=== PATIENT | male | born 1940 | race Caucasian/White ===

== ENCOUNTER → 2018-11-08 | Day surgery (SDC) | payer MEDICARE, OTHER ==
--- NOTE | 2018-11-04 22:33 | Diagnostic Imaging Report ---
EXAMINATION: CHEST 2 VIEWS INDICATION: ^PER PROTOCOL ^[id number] ^1645 ^PRE ADMIT COMPARISON: 08/26/2015 FINDINGS: PA and lateral views TUBES and LINES: None. LUNGS: Lungs are well inflated. Mild central vascular congestion. Bibasilar subsegmental atelectasis. PLEURA: No pleural effusion or pneumothorax. HEART AND MEDIASTINUM: The cardiomediastinal silhouette is unremarkable. Median sternotomy wires and mediastinal surgical clips are again seen. BONES AND SOFT TISSUES: No acute osseous lesion. Mildly elevated right hemidiaphragm. UPPER ABDOMEN: No free air under the diaphragm. IMPRESSION: No acute thoracic abnormality. Mild central vascular congestion and minimal bibasilar subsegmental atelectasis. Signed by: Dr. Willis Shanks MD on 11/04/2018 10:30 PM
[~2018-11-08] MED LIST: ACETAMINOPHEN 1000 MG/100 ML 100 ML IV ONE; AMLODIPINE BESYL5 MG PO; ASPIR 8181 MG PO; ATORVASTATIN CA10 MG PO; AUGMENTIN 875-1 EACH PO; BUPIVACAINE 0.25% 30ML SDV INJ ONE; CEFAZOLIN SOD 1 GM/NS 50ML 100 ML IV ONE; DEXAMETHASONE SOD PHOS INJ 4 MG/ML VIAL ONE; FENTANYL CITRATE/PF 100MCG/2 ML INJ ONE; FLAGYL500 MG PO; FLECAINIDE ACE100 MG PO; GLYCOPYRROLATE INJ 1MG/ 5 ML SYR ONE; IBUPROFEN 800MG/ 250ML 250 ML IV ONE; LIDOCAINE HCL (LTA) 4 ML SOLN ONE; LIDOCAINE HCL 2% JELLY 5 ML TUBE ONE; LIDOCAINE HCL 2% LOCAL INJ 5 ML SDV VIAL INJ ONE; METOPROLOL TAR100 MG PO; METOPROLOL TART50 MG PO; MIDAZOLAM HCL 2 MG/2 ML VIAL ONE; NEOSTIGMINE 5 MG/5ML SYR ONE; ONDANSETRON HCL INJ 2MG/ML 2ML 2 MG/ML VIAL ONE; PRINIVIL20 MG PO; PROPOFOL IV EMULSION 10 MG/ML 20 ML VIAL ONE; ROCURONIUM BROMIDE 10 MG/ML 5ML VIAL ONE; SEVOFLURANE INHAL SOLN 250 ML PEN BTL ONE; TAMIFLU75 MG PO; ZOFRAN ODT4 MG PO
--- OUTSIDE RECORDS SUMMARY | 2018-11-08 09:39 | XMS REPORT ---
[facility] Address Unknown Phone Unavailable Care Team Providers Care Physical Scientist Name Role Phone Bree NARANJO Unavailable Unavailable Payers Payer Name Policy Type Policy Number Effective Date Expiration Date Problems This patient has no known problems. Allergies, Adverse Reactions, Alerts Allergy Name Allergy Type Status Severity Reaction(s) Onset Date Inactive Date Treating Clinician Comments Tetanus Vaccines and Toxoid DA Active [place] 2010-06-18 00:00:00 Medications This patient has no known medications. Results Test Description Test Time Test Comments Text Results Atomic Results Result Comments CHEST 2 VIEWS 2018-11-04 22:28:00 [place] [address] Patient Name: LACHO SAENZ JR MR #: [id number] : 1940 Age/Sex: 78/M Req #: [id number] Adm Physician: Ordered by: KENDALL NARANJO MD Report #: [id number] Location: OR Room/Bed: Procedure: [id number] DX/CHEST 2 VIEWS Exam Date: 11/04/18 Exam Time: 1645 REPORT STATUS: Signed EXAMINATION: CHEST 2 VIEWS INDICATION: PER PROTOCOL [id number] PRE ADMIT COMPARISON: 08/26/2015 FINDINGS: PA and lateral views TUBES and LINES: None. LUNGS: Lungs are well inflated. Mild central vascular congestion. Bibasilar subsegmental atelectasis. PLEURA: No pleural effusion or pneumothorax. HEART AND MEDIASTINUM: The cardiomediastinal silhouette is unremarkable. Median sternot ivan wires and mediastinal surgical clips are again seen. BONES AND SOFT TISSUES: No acute osseous lesion. Mildly elevated right hemidiaphragm. UPPER ABDOMEN: No free air under the diaphragm. IMPRESSION: No acute thoracic abnormality. Mild central vascular congestion and minimal bibasilar subsegmental atelectasis. Signed by: Dr. Willis Smith MD on 11/04/2018 10:30 PM Dictated By: WILLIS SMITH MD 29 Transcribed By: LUIS on 11/04/182229 COPY TO: KENDALL NARANJO MD - XR T-SPINE 3 VIEWS 2018-09-28 13:25:00 [place]: CT St: REG Name: LACHO SAENZ [facility] FS : 1940 Age/S: 78/M [address] #: [id number] Loc: [facility] [address] Phys: Narciso Heck MD [place], [place] [address] Acct: [id number] Dis Date: Status: REG CLI PHONE #: Exam Date: 09/28/2018 1220 FAX #: Reason: ACUTE RIGHT SIDED THORACIC BACK PAIN EXAMS: CPT CODE: [id number] XR T-SPINE 3 VIEWS 34482 TECHNIQUE: 4 views of the thoracic spine COMPARISON: None provided. FINDINGS: Bones: Endplate osteophyte formation at multiple levels. No focal bone lesion. Subtle age indeterminate compression fractures mid and lower thoracic vertebral bodies on the lateral view.. Alignment: No spondylolisthesis. Median sternotomy. Intervertebral discs: Disc height reduction at multiple levels with degenerative disc changes. Paravertebral soft tissues: No abnormalities. Other: None. IMPRESSION: Mild spondylosis multiple levels. Subtle age indeterminate compression fractures mid and lower thoracic vertebral bodies on the lateral view.. at 1325 Reported and signed by: Neeraj Mathur M.D. CC: Technologist: BREE SOTO(R)(CT) Trnwyrd Date/Time/By: 09/28/2018 (1235) : By: Misha Orig Print D/T: S: 09/28/2018 (2713) PAGE 1 Signed Report
--- OUTSIDE RECORDS SUMMARY | 2018-11-08 09:39 | XMS REPORT | Summary of Care ---
Author Author [facility] Organization [facility] Address Unknown Phone Unavailable Encounter RYAN Alvarez([place]) [id number] Date(s): 08/31/15 - 08/31/15 [facility] [address] [place] [address]- [facility] [phone] Discharge Disposition: Home Attending Physician: Amy Kang MD Referring Physician: Amy Kang MD Vital Signs Most recent to 1 oldest [Reference Range]: Height 175.26 cm (08/31/15 7:24 AM) Temperature Oral 96.8 DegF [96.4-99.1 DegF] (08/31/15 7:24 AM) Blood Pressure 108/69 mmHg [90-140/60-90 mmHg] (08/31/15 7:24 AM) Peripheral Pulse 75 bpm Rate [60-100 bpm] (08/31/15 7:24 AM) Weight 106.818 kg (08/31/15 7:24 AM) Body Mass Index 34.78 m2 (08/31/15 7:24 AM) Problem List Condition Effective Dates Status Health Status Informant Cholesterol(Confirme Active d)1 HBP - High blood Active pressure(Confirmed) 1Hig cholesterol Allergies, Adverse Reactions, Alerts Substance Reaction Severity Status NKDA Active Medications lisinopril PO, Daily, 0 Refill(s) Start Date: 08/31/15 Status: Ordered metroNIDAZOLE 500 mg oral tablet 500 mg=1 tab, PO, Q8H, 0 Refill(s) Start Date: 08/31/15 Status: Ordered tobramycin 0 Refill(s) Start Date: 08/31/15 Status: Ordered Results No data available for this section Immunizations No data available for this section Procedures Procedure Date Related Diagnosis Body Site Triple coronary bypass Social History Social History Type Response Alcohol Past, Previous treatment: None. Smoking Status Former smoker; Exposure to Tobacco Smoke None; Cigarette Smoking Last 365 Days No; Reg Smoking Cessation Counseling No Assessment and Plan No data available for this section
--- OUTSIDE RECORDS SUMMARY | 2018-11-08 09:39 | XMS REPORT | Summary of Care ---
Author Author [facility] Organization [facility] Address Unknown Phone Unavailable Encounter RYAN Alvarez([place]) [id number] Date(s): 03/23/15 - 03/23/15 [facility] [address] [place] [address] Discharge Disposition: Home Attending Physician: Amy Kang MD Referring Physician: Pao Rosa MD Vital Signs Most recent to 1 oldest [Reference Range]: Height 175.26 cm (03/23/15 9:26 AM) Blood Pressure 125/63 mmHg [90-140/60-90 mmHg] (03/23/15 9:26 AM) Peripheral Pulse 56 bpm Rate [60-100 bpm] *LOW* (03/23/15 9:26 AM) Weight 119.091 kg (03/23/15 9:26 AM) Body Mass Index 38.77 m2 (03/23/15 9:26 AM) Problem List Condition Effective Dates Status Health Status Informant Cholesterol(Confirme Active d)1 HBP - High blood Active pressure(Confirmed) 1Hig cholesterol Allergies, Adverse Reactions, Alerts No data available for this section Medications amLODIPine 10 mg oral tablet 10 mg=1 tab, PO, Daily, # 30 tab, 0 Refill(s) Start Date: 03/23/15 Status: Ordered Aspirin Low Dose 81 mg oral tablet =1 tab, PO, Daily, # 30 tab, 1 Refill(s) Start Date: 03/23/15 Status: Ordered atorvastatin 20 mg oral tablet 20 mg=1 tab, PO, Bedtime, # 30 tab, 0 Refill(s) Start Date: 03/23/15 Status: Ordered cyclobenzaprine 10 mg oral tablet 10 mg=1 tab, PO, Bedtime, # 30 day, 0 Refill(s) Start Date: 03/23/15 Stop Date: 04/22/15 Status: Ordered GoLYTELY oral powder for reconstitution See Instructions, Take as directed by physician., # 1 ea, 0 Refill(s) Start Date: 03/23/15 Status: Ordered metoprolol 100 mg oral tablet, extended release 100 mg=1 tab, PO, Daily, # 30 tab, 0 Refill(s) Start Date: 03/23/15 Status: Ordered predniSONE 10 mg oral tablet 10 mg=1 tab, PO, Daily, # 30 tab, 0 Refill(s) Start Date: 03/23/15 Stop Date: 04/22/15 Status: Ordered Results No data available for [...]
--- OUTSIDE RECORDS SUMMARY | 2018-11-08 09:39 | XMS REPORT | Summary of Care ---
Author Author [facility] Organization [facility] Address Unknown Phone Unavailable Encounter RYAN Alvarez([place]) [id number] Date(s): 09/07/15 - 09/07/15 [facility] [address] [place] [address]- [address] [phone] Discharge Disposition: Home Attending Physician: Sheldon Horn MD Referring Physician: Sheldon Horn MD Vital Signs Most recent to 1 oldest [Reference Range]: Height 177.8 cm (09/07/15 12:36 PM) Blood Pressure 118/79 mmHg [90-140/60-90 mmHg] (09/07/15 12:36 PM) Peripheral Pulse 74 bpm Rate [60-100 bpm] (09/07/15 12:36 PM) Weight 104.091 kg (09/07/15 12:36 PM) Body Mass Index 32.93 m2 (09/07/15 12:36 PM) Problem List Condition Effective Dates Status Health Status Informant Cholesterol(Confirme Active d)1 Clostridium Active difficile(Confirmed) HBP - High blood Active pressure(Confirmed) 1Hig cholesterol Allergies, Adverse Reactions, Alerts Substance Reaction Severity Status NKDA Active Medications No Known Medications Results No data available for this section Immunizations No data available for this section Procedures Procedure Date Related Diagnosis Body Site Colonoscopy Triple coronary bypass Social History Social History Type Response Alcohol Past, Previous treatment: None. Smoking Status Former smoker; Exposure to Tobacco Smoke None; Cigarette Smoking Last 365 Days No; Reg Smoking Cessation Counseling No Assessment and Plan No data available for this section
--- OUTSIDE RECORDS SUMMARY | 2018-11-08 09:39 | XMS REPORT | Continuity of Care Document ---
Author Author [facility] Interface Address Unknown Phone Unavailable Problems Problem Status Onset Date Classification Date Reported Comments Source ADD ON PER ABHINAV Active 09/07/2015 [facility] Discharge Diagnosis: Dehydration 09/06/2015 09/09/2015 [facility] Discharge Diagnosis: C. difficile colitis 09/06/2015 09/09/2015 [facility] RECURRENCE OF C DIFF Active 09/05/2015 [facility] F/U Active 08/27/2015 [facility] BDDC - ENCOUNTER FOR SCREENING FOR MALIG Active 03/23/2015 [facility] CT IDENTIFIED ISSUE WITH LOWER INSTESTIN Active 02/22/2015 [facility] Cholesterol<sup>1</sup> Active Problem 09/10/2015 Hig cholesterol [facility] HBP - High blood pressure Active Problem 09/10/2015 [facility] Final: Other and Unspecified Angina Pectoris 02/16/2015 OLIVE Gutierrez Final: Coronary Atherosclerosis of [place] Coronary Artery 02/16/2015 OLIVE Gutierrez Final: First Degree Atrioventricular Block 02/16/2015 OLIVE Gutierrez Final: Postsurgical Aortocoronary Bypass Status 02/16/2015 OLIVE Gutierrez Final: Percutaneous Transluminal Coronary Angioplasty, Postsurgical Status 02/16/2015 OLIVE Gutierrez Clostridium difficile Active Problem 09/10/2015 [facility] XRAY Active [facility] LUMBOSACRAL NEURITIS NOS Active [facility] MEDICAL SERVICES NOT AVAILABLE IN HOME Active [facility] Medications Medication Details Route Status Patient Instructions Ordering Provider Order Date Source vancomycin 125 mg oral capsule 125 mg=1 cap, PO, Q6H, X 10 day, # 40 cap, 0 Refill(s) No Longer Active 09/06/2015 [facility] Ondansetron 8 MG Disintegrating Tablet [Zofran] 8 mg=1 tab, PO, TID, PRN Nausea and Vomiting, Dissolve tab under tongue, # 15 tab, 0 Refill(s) No Longer Active 09/06/2015 [facility] Zofran 4 mg, Route: IVP, Drug form: INJ, ONCE, Dosing Weight 106.818, kg, Priority: STAT, Start date: 09/06/15 17:36:00 CDT, Stop date: 09/06/15 17:36:00 CDT Inactive 09/06/2015 [facility] Calcium Chloride 0.0014 MEQ/ML / Potassium Chloride 0.004 MEQ/ML / Sodium Chloride 0.103 MEQ/ML / Sodium Lactate 0.028 MEQ/ML Injectable Solution 1,000 mL, 1000 ml/hr, Infuse Over: 1 hr, Route: IV, 1,000, Drug form: INJ, ONCE, Priority: STAT, Dosing Weight 106.818 kg, Start date: 09/06/15 17:05:00 CDT, Duration: 1 doses or times, Stop date: 09/06/15 17:05:00 CDT Inactive 09/06/2015 [facility] Calcium Chloride 0.0014 MEQ/ML / Potassium Chloride 0.004 MEQ/ML / Sodium Chloride 0.103 MEQ/ML / Sodium Lactate 0.028 MEQ/ML Injectable Solution 1,000 mL, 1000 ml/hr, Infuse Over: 1 hr, Route: IV, 1,000, Drug form: INJ, ONCE, Priority: STAT, Dosing Weight 106.818 kg, Start date: 09/06/15 17:04:00 CDT, Duration: 1 doses or times, Stop date: 09/06/15 17:04:00 CDT Inactive 09/06/2015 [facility] Sodium Chloride 0.154 MEQ/ML Injectable Solution 1,000 mL, 1,000 ml/hr, Infuse Over: 1 Hour, Route: IV, ONCE, Priority: STAT, Dosing Weight 106.818 kg, Start date: 09/06/15 17:03:00 CDT, Duration: 1 doses or times, Stop date: 09/06/15 17:03:00 CDT Inactive 09/06/2015 [facility] Tobramycin 0 Refill(s) Active 08/31/2015 [facility] Metronidazole 500 MG Oral Tablet 500 mg=1 tab, PO, Q8H, 0 Refill(s) Active 08/31/2015 [facility] Lisinopril PO, Daily, 0 Refill(s) Active 08/31/2015 [facility] GoLYTELY oral powder for reconstitution See Instructions, Take as directed by physician., # 1 ea, 0 Refill(s) Active 03/23/2015 [facility] cyclobenzaprine 10 mg oral tablet 10 mg=1 tab, PO, Bedtime, # 30 day, 0 Refill(s) Active 03/23/2015 [facility] predniSONE 10 mg oral tablet 10 mg=1 tab, PO, Daily, # 30 tab, 0 Refill(s) Active 03/23/2015 [facility] Aspirin Low Dose 81 mg oral tablet =1 tab, PO, Daily, # 30 tab, 1 Refill(s) Active 03/23/2015 [facility] atorvastatin 20 mg oral tablet 20 mg=1 tab, PO, Bedtime, # 30 tab, 0 Refill(s) Active 03/23/2015 [facility] amLODIPine 10 mg oral tablet 10 mg=1 tab, PO, Daily, # 30 tab, 0 Refill(s) Active 03/23/2015 [facility] metoprolol 100 mg oral tablet, extended release 100 mg=1 tab, PO, Daily, # 30 tab, 0 Refill(s) Active 03/23/2015 [facility] Allergies, Adverse Reactions, Alerts Substance Category Reaction Severity Reaction type Status Date Reported Comments Source Immunizations Immunization Date Given Site Status Last Updated Comments Source Results Order Name Results Value Reference Range Date Interpretation Comments Source CHEM PANEL Lipase Lvl 88 unit/L 73 - 393 09/06/2015 [facility] CHEM PANEL eGFR 71 mL/min/1.73m2 09/06/2015 Result Comment: The eGFR is calculated using the CKD-EPI formula. In most young, healthy individuals the eGFR will be >90 mL/min/1.73m2. The eGFR declines with age. An eGFR of 60-89 may be normal in some populations, particularly the elderly, for whom the CKD-EPI formula has not been extensively validated. Use of the eGFR is not recommended in the following populations: Individuals with unstable creatinine concentrations, including patients and those with serious co-morbid conditions. Patients with extremes in muscle mass or diet. The data above are obtained from the National Kidney Disease Education Program (NKDEP) which additionally recommends that when the eGFR is used in patients with extremes of body mass index for purposes of drug dosing, the eGFR should be multiplied by the estimated BMI. [facility] CHEM PANEL Bili Total 0.6 mg/dL 0.2 - 1.3 09/06/2015 [facility] CHEM PANEL Alk Phos 48 unit/L 39 - 136 09/06/2015 [facility] CHEM PANEL Total Protein 7.1 g/dL 6.4 - 8.4 09/06/2015 [facility] CHEM PANEL Albumin Lvl 3.4 g/dL 3.5 - 5.0 09/06/2015 [facility] CHEM PANEL ALT 46 unit/L 0 - 65 09/06/2015 [facility] CHEM PANEL AST 23 unit/L 0 - 37 09/06/2015 [facility] CHEM PANEL CO2 22 meq/L 24 - 32 09/06/2015 [facility] CHEM PANEL Calcium Lvl 8.8 mg/dL 8.5 - 10.5 09/06/2015 [facility] CHEM PANEL Sodium Lvl 136 meq/L 135 - 145 09/06/2015 [facility] CHEM PANEL Potassium Lvl 3.1 meq/L 3.5 - 5.1 09/06/2015 [facility] CHEM PANEL Chloride Lvl 104 meq/L 95 - 109 09/06/2015 [facility] CHEM PANEL Glucose Lvl 108 mg/dL 70 - 99 09/06/2015 [facility] CHEM PANEL BUN 12 mg/dL 7 - 22 09/06/2015 [facility] CHEM PANEL Creatinine Lvl 1.04 mg/dL 0.50 - 1.40 09/06/2015 [facility] CHEM PANEL A/G Ratio 0.9 0.7 - 1.6 09/06/2015 [facility] CHEM PANEL AGAP 13.1 meq/L 10.0 - 20.0 09/06/2015 [facility] CHEM PANEL B/C Ratio 12 6 - 25 09/06/2015 [facility] CHEM PANEL Globulin 3.7 g/dL 2.0 - 4.0 09/06/2015 [facility] HEMATOLOGY Segs-Bands # 25.6 K/CMM 1.5 - 8.1 09/06/2015 [facility] HEMATOLOGY Basophils 0.3 % 0.0 - 1.0 09/06/2015 [facility] HEMATOLOGY Monocytes 3.5 % 2.0 - 12.0 09/06/2015 [facility] HEMATOLOGY Lymphocytes 2.4 % 20.0 - 40.0 09/06/2015 [facility] HEMATOLOGY Basophils # 0.1 K/CMM 0.0 - 0.2 09/06/2015 [facility] HEMATOLOGY Monocytes # 0.9 K/CMM 0.0 - 0.8 09/06/2015 [facility] HEMATOLOGY Segs 93.8 % 45.0 - 75.0 09/06/2015 [facility] RBC Morph Normal (09/06/15 5:34 PM) 09/06/2015 [facility] Plt Morph Normal (09/06/15 5:34 PM) 09/06/2015 [facility] Lymphocytes # 0.6 K/CMM 1.0 - 5.5 09/06/2015 [facility] Platelet 183 K/CMM 133 - 450 09/06/2015 [facility] MPV 8.4 fL 7.4 - 10.4 09/06/2015 [facility] RDW 14.1 % 11.5 - 14.5 09/06/2015 [facility] MCHC 33.0 g/dL 32.0 - 36.0 09/06/2015 [facility] RBC 5.12 M/CMM 4.70 - 6.10 09/06/2015 [facility] WBC 27.2 K/CMM 3.7 - 10.4 09/06/2015 [facility] MCH 30.0 pg 27.0 - 31.0 09/06/2015 [facility] Hct 46.5 % 42.0 - 54.0 09/06/2015 [facility] Hgb 15.4 g/dL 14.0 - 18.0 09/06/2015 [facility] MCV 90.8 fL 80.0 - 94.0 09/06/2015 [facility] Spine lumbar wo contrast MRI Spine lumbar wo contrast MRI MRI LUMBAR SPINE WITHOUT CONTRAST COMPARISON: No prior exam. TECHNIQUE: Sagittal T1, sagittal T2 with fat saturation, axial T1 and axial T2 images were obtained. No intravenous gadolinium was given. FINDINGS: The paravertebral soft tissues are normal. The conus medullaris terminates at the L2 level. Congenital shortened lumbar pedicles are seen. Mild dorsal epidural lipomatosis is present. T12-L1: No central canal or foraminal stenosis. 1.5 cm right anterolateral osteophytes are present. L1-L2: Minimal disc bulge is present with mild central canal stenosis in combination with the short lumbar pedicles and mild dorsal epidural lipomatosis. Small bilateral subligamentous synovial cysts are seen measuring up to 4.8 mm. Mild right foraminal stenosis is seen. Right anterolateral osteophytes are present L2-L3: Severe central canal stenosis is present due to 3 mm disc bulge with posterior annular fissure, short lumbar pedicles, severe ligamenta flava redundancy. The lateral recesses are significantly stenotic. There is moderate to severe right foraminal stenosis and moderate left foraminal stenosis due to disc osteophyte complex encroachment. Right extraforaminal disc osteophyte complex is present. L3-L4: Moderate central canal stenosis is present due to minimal disc bulge, short lumbar pedicles, and mild epidural lipomatosis. There is mild bilateral foraminal stenosis. Small anterior disc osteophyte complex is present. L4-L5: Moderate to severe central canal stenosis is present due to significant ligamenta flava redundancy, mild disc bulge, and short lumbar pedicles. Mild to moderate bilateral foraminal stenosis is present. L5-S1: Moderate disc narrowing is seen with grade 1 retrolisthesis. 4.5 mm posterior disc osteophyte complex is seen with mass effect on the bilateral S1 descending nerve roots. Severe bilateral foraminal stenosis is present due to foraminal and extraforaminal disc osteophyte complexes. Mild central canal stenosis is present. Bilateral renal cysts are seen, not completely evaluated on this exam. IMPRESSION: 1. Multilevel disc degenerative disease and spondylosis. Congenital shortened lumbar pedicles are seen. 2. L2-L3 severe central canal stenosis, L3-L4 and L4-L5 moderate to severe central canal stenosis. 3. Multilevel moderate to severe foraminal stenosis, most prominent at L2-L3 and L5-S1 levels. 02/18/2015 - - Read by: Philip Rm MD Dictated Date/time: 02/18/15 16:07 Electronically Signed by: Philip Rm MD 02/18/15 16:14 FINAL REPORT [facility] Hip 2 views DX Hip 2 views DX RIGHT HIP RADIOGRAPH 2 VIEWS INDICATION: Right hip pain COMPARISON: None FINDINGS: No fractures or dislocations are seen. The joint spaces are maintained. No osteolytic or sclerotic lesions are visualized. The regional soft tissues are unremarkable. IMPRESSION: Unremarkable radiographic appearance of the right hip. SL: 16 01/24/2015 - - Read by: Henrique Moulton MD Dictated Date/time: 01/24/15 17:08 Electronically Signed by: Henrique Moulton MD 01/24/15 17:09 FINAL REPORT [facility] Spine Lumbar Comp w Bend views DX Spine Lumbar Comp w Bend views DX LUMBAR SPINE RADIOGRAPH 7 VIEWS INCLUDING LATERAL FLEXION AND EXTENSION INDICATION: Lower back pain COMPARISON: None FINDINGS: There is grade 1 retrolisthesis at L2-L3 and L3-L4, displaced approximately 2-3 mm, greater at L2-L3. Spondylolisthesis is stable with flexion and extension. There is osteophytosis throughout the lumbar spine, most prominent at T12-L1, L1-L2, and L3-L4. Mild disc space narrowing is noted at L2-L3 and L5-S1. The disc spaces are otherwise maintained. There is facet arthrosis throughout the lumbar spine, with greatest hypertrophy at L4-L5 and L5-S1. There is no appreciable osseous demineralization. No compression or displaced fractures are seen. IMPRESSION: Lumbar spondylosis, as described, associated with grade 1 spondylolisthesis at L2-L3 and L3-L4. SL: 16 01/24/2015 - - Read by: Henrique Moulton MD Dictated Date/time: 01/25/15 08:46 Electronically Signed by: Henrique Moulton MD 01/25/15 08:50 FINAL REPORT [facility] Vital Signs Vital Sign Value Date Comments Source Weight 104.091 09/07/2015 [facility] BMI Calculated 32.93 09/07/2015 [facility] Heart Rate 74 09/07/2015 [facility] Height 177.8 cm 09/07/2015 [facility] Systolic (mm Hg) 118 09/07/2015 [facility] Diastolic (mm Hg) 79 09/07/2015 [facility] Temperature Oral (F) 98.0 F 09/07/2015 [facility] Systolic (mm Hg) 137 09/07/2015 [facility] Diastolic (mm Hg) 70 09/07/2015 [facility] Heart Rate 100 09/07/2015 [facility] Respitory Rate 20 09/07/2015 [facility] Weight 106.818 09/06/2015 [facility] Respitory Rate 18 09/06/2015 [facility] Heart Rate 100 09/06/2015 [facility] Temperature Oral (F) 98.1 F 09/06/2015 [facility] BMI Calculated 33.79 09/06/2015 [facility] Height 177.8 cm 09/06/2015 [facility] Systolic (mm Hg) 133 09/06/2015 [facility] Diastolic (mm Hg) 80 09/06/2015 [facility] Weight 106.818 08/31/2015 [facility] Systolic (mm Hg) 108 08/31/2015 [facility] Diastolic (mm Hg) 69 08/31/2015 [facility] Height 175.26 cm 08/31/2015 [facility] BMI Calculated 34.78 08/31/2015 [facility] Temperature Oral (F) 96.8 F 08/31/2015 [facility] Heart Rate 75 08/31/2015 [facility] Weight 119.091 03/23/2015 [facility] BMI Calculated 38.77 03/23/2015 [facility] Height 175.26 cm 03/23/2015 [facility] Systolic (mm Hg) 125 03/23/2015 [facility] Diastolic (mm Hg) 63 03/23/2015 [facility] Heart Rate 56 03/23/2015 [facility] Encounters Location Location Details Encounter Type Encounter Number Reason For Visit Attending Provider ADM Date DC Date Status Source [facility] Outpatient [id number] Bethany Mehta 01/24/2015 01/25/2015 [facility] [id number] Mike Lund 02/13/2015 02/14/2015 [facility] Outpatient Imaging [facility] Di[facility] Services [id number] Bethany Mehta 02/18/2015 02/19/[address] [facility] Outpatient [id number] Atilla Ertan 03/23/2015 03/24/2015 [facility] Bedded Outpatient [id number] Atilla Ertan 04/23/2015 04/23/2015 [facility] Outpatient [id number] Atilla Ertan 08/31/2015 09/01/2015 [facility] [id number] Rashaad Confucianism 09/06/2015 09/07/2015 [facility] Outpatient [id number] Sheldon Horn 09/07/2015 09/08/2015 [facility] Procedures Procedure Code Date Perfomer Comments Source Triple coronary bypass [id number] [facility] Colonoscopy [id number] [facility] Colonoscopy [id number] [facility] Triple coronary bypass [id number] [facility]
--- OUTSIDE RECORDS SUMMARY | 2018-11-08 09:39 | XMS REPORT | Summary of Care ---
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 Final: Postsurgical Aortocoronary Bypass Status Final: Percutaneous Transluminal Coronary Angioplasty, Postsurgical Status Discharge Disposition: Home Attending Physician: Mike Lund MD Vital Signs No data available for this section Problem List No data available for this section Allergies, Adverse Reactions, Alerts No data available for this section Medications No data available for this section Results No data available for this section Immunizations No data available for this section Procedures No data available for this section Social History No data available for this section Assessment and Plan No data available for this section
--- OUTSIDE RECORDS SUMMARY | 2018-11-08 09:39 | XMS REPORT | Summary of Care ---
Author Author [facility] Outpatient Imaging [facility] Outpatient Imaging [facility] Address Unknown Phone Unavailable Encounter [facility] Homerntr_alias([place]) [id number] Date(s): 02/18/15 - 02/18/15 [facility] Outpatient Imaging [address] [phone] Discharge Disposition: Home Attending Physician: Bethany Mehta DO Vital Signs No data available for this [...]
--- OUTSIDE RECORDS SUMMARY | 2018-11-08 09:39 | XMS REPORT | Summary of Care ---
Author Author [facility] Organization [facility] Address Unknown Phone Unavailable Encounter HQ Encntr_alias([place]) [id number] Date(s): 01/24/15 - 01/24/15 [facility] [address] [place] [address]- [phone] Discharge Disposition: Home Attending Physician: Bethany Mehta DO Admitting Physician: Bethany Mehta DO Vital Signs No [...]
--- OUTSIDE RECORDS SUMMARY | 2018-11-08 09:39 | XMS REPORT | Summary of Care ---
Author Author [facility] Organization [facility] Address Unknown Phone Unavailable Encounter RYAN Alvarez([place]) [id number] Date(s): 09/06/15 - 09/06/15 [facility] [address] [place] [address]- Discharge Diagnosis: Dehydration Discharge Diagnosis: C. difficile colitis Discharge Disposition: Home Attending Physician: Rashaad Milner MD Vital Signs Most recent to 1 2 oldest [Reference Range]: Height 177.8 cm (09/06/15 4:28 PM) Temperature Oral 98.0 DegF 98.1 DegF [96.4-99.1 DegF] (09/06/15 7:06 PM) (09/06/15 4:28 PM) Blood Pressure 137/70 mmHg 133/80 mmHg [90-140/60-90 mmHg] (09/06/15 7:06 PM) (09/06/15 4:28 PM) Respiratory Rate 20 BRMIN 18 BRMIN [14-20 BRMIN] (09/06/15 7:06 PM) (09/06/15 4:28 PM) Peripheral Pulse 100 bpm 100 bpm Rate [60-100 bpm] (09/06/15 7:06 PM) (09/06/15 4:28 PM) Weight 106.818 kg (09/06/15 4:28 PM) Body Mass Index 33.79 m2 (09/06/15 4:28 PM) Problem List Condition Effective Dates Status Health Status Informant Cholesterol(Confirme Active d)1 Clostridium Active difficile(Confirmed) HBP - High blood Active pressure(Confirmed) 1Hig cholesterol Allergies, Adverse Reactions, Alerts Substance Reaction Severity Status NKDA Active Medications Lactated Ringers (Bolus) IV 1,000 mL, 1000 ml/hr, Infuse Over: 1 hr, Route: IV, 1,000, Drug form: INJ, ONCE, Priority: STAT, Dosing Weight 106.818 kg, Start date: 09/06/15 17:04:00 CDT, Du ration: 1 doses or times, Stop date: 09/06/15 17:04:00 CDT Start Date: 09/06/15 Stop Date: 09/06/15 Status: Completed Lactated Ringers (Bolus) IV 1,000 mL, 1000 ml/hr, Infuse Over: 1 hr, Route: IV, 1,000, Drug form: INJ, ONCE, Priority: STAT, Dosing Weight 106.818 kg, Start date: 09/06/15 17:05:00 CDT, Du ration: 1 doses or times, Stop date: 09/06/15 17:05:00 CDT Start Date: 09/06/15 Stop Date: 09/06/15 Status: Completed Sodium Chloride 0.9% (Bolus) IV 1,000 mL, 1,000 ml/hr, Infuse Over: 1 Hour, Route: IV, ONCE, Priority: STAT, Dos ing Weight 106.818 kg, Start date: 09/06/15 17:03:00 CDT, Duration: 1 doses or t imes, Stop date: 09/06/15 17:03:00 CDT Start Date: 09/06/15 Stop Date: 09/06/15 Status: Discontinued vancomycin 125 mg oral capsule 125 mg=1 cap, PO, Q6H, X 10 day, # 40 cap, 0 Refill(s) Start Date: 09/06/15 Stop Date: 09/07/15 Status: Discontinued Zofran 4 mg, Route: IVP, Drug form: INJ, ONCE, Dosing Weight 106.818, kg, Priority: STA T, Start date: 09/06/15 17:36:00 CDT, Stop date: 09/06/15 17:36:00 CDT Start Date: 09/06/15 Stop Date: 09/06/15 Status: Completed Zofran ODT 8 mg oral tablet, disintegrating 8 mg=1 tab, PO, TID, PRN Nausea and Vomiting, Dissolve tab under tongue, # 15 ta b, 0 Refill(s) Start Date: 09/06/15 Stop Date: 09/07/15 Status: Discontinued Results ELECTROLYTES Most recent to 1 oldest [Reference Range]: Sodium Lvl [135-145 136 mEq/L mEq/L] (09/06/15 5:34 PM) Potassium Lvl 3.1 mEq/L [3.5-5.1 mEq/L] *LOW* (09/06/15 5:34 PM) Chloride Lvl [95-109 104 mEq/L mEq/L] (09/06/15 5:34 PM) CO2 [24-32 mEq/L] 22 mEq/L *LOW* (09/06/15 5:34 PM) AGAP [10.0-20.0 13.1 mEq/L mEq/L] (09/06/15 5:34 PM) CHEM PANEL Most recent to 1 oldest [Reference Range]: Creatinine Lvl 1.04 mg/dL [0.50-1.40 mg/dL] (09/06/15 5:34 PM) eGFR 71 mL/min/1.73m2 1 *NA* (09/06/15 5:34 PM) BUN [7-22 mg/dL] 12 mg/dL (09/06/15 5:34 PM) B/C Ratio [6-25] 12 (09/06/15 5:34 PM) Glucose Lvl [70-99 108 mg/dL mg/dL] *HI* (09/06/15 5:34 PM) Total Protein 7.1 g/dL [6.4-8.4 g/dL] (09/06/15 5:34 PM) Albumin Lvl [3.5-5.0 3.4 g/dL g/dL] *LOW* (09/06/15 5:34 PM) Globulin [2.0-4.0 3.7 g/dL g/dL] (09/06/15 5:34 PM) A/G Ratio [0.7-1.6] 0.9 (09/06/15 5:34 PM) Calcium Lvl 8.8 mg/dL [8.5-10.5 mg/dL] (09/06/15 5:34 PM) ALT [0-65 unit/L] 46 unit/L (09/06/15 5:34 PM) AST [0-37 unit/L] 23 unit/L (09/06/15 5:34 PM) Alk Phos [39-136 48 unit/L unit/L] (09/06/15 5:34 PM) Bili Total [0.2-1.3 0.6 mg/dL mg/dL] (09/06/15 5:34 PM) Lipase Lvl [73-393 88 unit/L unit/L] (09/06/15 5:34 PM) 1Result Comment: The eGFR is calculated using the [...] from the National Kidney Disease Education Program ( NKDEP) which additionally recommends that when the eGFR is used in patients with extremes of body mass index for purposes of drug dosing, the eGFR should be mul tiplied by the estimated BMI. HEMATOLOGY Most recent to 1 oldest [Reference Range]: WBC [3.7-10.4 K/CMM] 27.2 K/CMM *HI* (09/06/15 5:34 PM) RBC [4.70-6.10 5.12 M/CMM M/CMM] (09/06/15 5:34 PM) Hgb [14.0-18.0 g/dL] 15.4 g/dL (09/06/15 5:34 PM) Hct [42.0-54.0 %] 46.5 % (09/06/15 5:34 PM) MCV [80.0-94.0 fL] 90.8 fL (09/06/15 5:34 PM) MCH [27.0-31.0 pg] 30.0 pg (09/06/15 5:34 PM) MCHC [32.0-36.0 33.0 g/dL g/dL] (09/06/15 5:34 PM) RDW [11.5-14.5 %] 14.1 % (09/06/15 5:34 PM) Platelet [133-450 183 K/CMM K/CMM] (09/06/15 5:34 PM) MPV [7.4-10.4 fL] 8.4 fL (09/06/15 5:34 PM) Segs [45.0-75.0 %] 93.8 % *HI* (09/06/15 5:34 PM) Lymphocytes 2.4 % [20.0-40.0 %] *LOW* (09/06/15 5:34 PM) Monocytes [2.0-12.0 3.5 % %] (09/06/15 5:34 PM) Basophils [0.0-1.0 0.3 % %] (09/06/15 5:34 PM) Segs-Bands # 25.6 K/CMM [1.5-8.1 K/CMM] *HI* (09/06/15 5:34 PM) Lymphocytes # 0.6 K/CMM [1.0-5.5 K/CMM] *LOW* (09/06/15 5:34 PM) Monocytes # [0.0-0.8 0.9 K/CMM K/CMM] *HI* (09/06/15 5:34 PM) Basophils # [0.0-0.2 0.1 K/CMM K/CMM] (09/06/15 5:34 PM) RBC Morph Normal (09/06/15 5:34 PM) Plt Morph Normal (09/06/15 5:34 PM) Immunizations No data available for this section [...]
--- OUTSIDE RECORDS SUMMARY | 2018-11-08 09:39 | XMS REPORT | Summary of Care ---
Author Author [facility] Organization [facility] Address Unknown Phone Unavailable Encounter HQ [facility]([place]) [id number] Date(s): 04/23/15 - 04/23/15 [facility] [address] Discharge Disposition: Home Attending Physician: Amy Kang MD Referring Physician: Amy Kang MD Vital Signs No data available for this section Problem List Condition Effective Dates Status Health [...]
[2018-11-08 15:35] VITALS: BP 126/70
--- NOTE | 2018-11-08 19:58 | Operative Report ---
DATE OF PROCEDURE: 11/08/2018 SURGEON: Abhay Pineda MD PREOPERATIVE DIAGNOSIS: Ventral hernia. POSTOPERATIVE DIAGNOSIS: Ventral hernia. PREOPERATIVE INDICATIONS: Treat disease, prevent complications related to hernia. PROCEDURE: Laparoscopic ventral hernia repair with mesh. ANESTHESIA: General. POSTAL SUPPORT EMPLOYEE: Grayson Watson, surgical services director (needed due to complexity of case). FLUIDS: 300 mL of crystalloid. ESTIMATED BLOOD LOSS: 20 mL. DRAINS: None. COMPLICATIONS: None. SPECIMENS: Fatty tissue from the hernia. GRAFTS: [address] mesh. FINDINGS: About a 2 cm large ventral hernia. PROCEDURE IN DETAIL: The patient was brought to the operating room and was intubated under general endotracheal anesthesia. He was sterilely prepped and draped in the usual fashion. Preprocedure pause was performed identifying the patient, use of perioperative antibiotics, intended procedure, and staff surgeon. Access was gained via a 5-mm left subcostal incision using the Veress needle. The abdomen was insufflated. I then placed an additional 12-mm trocar in the left lower quadrant. There was some preperitoneal fat, which was herniated through, which was reduced from the defect. I then closed the defect with PDS suture using the Maury-Enzo technique in an interrupted fashion. The defect was approximated this way. In order to reduce hernia recurrence, I introduced an [address] mesh with a smooth side facing the peritoneal cavity and the rough side facing the anterior abdominal. This was tagged circumferentially with an AbsorbaTack device. This covered the defect circumferentially for several centimeters with good overlap. We then achieved hemostasis. I closed the large port site with #0 Vicryl suture using the Maury-Enzo technique. We then desufflated the abdomen and removed the trocars. The incision sites were closed with 4-0 Monocryl suture in subcuticular fashion. Dermabond dressing was applied. A 30 mL of 0.25% bupivacaine was used both at the preperitoneal incisional sites. The patient tolerated the procedure well. Type of wound was type 1, clean. Abhay Pineda MD [facility] [place]/[facility] /[id number]
== END | disposition home or self-care (01) ==
LOC: OR 09:31
PROVIDERS: ATTEND Surgery
DX: K43.9 Ventral hernia without obstruction or gangrene (principal); I25.810 Atherosclerosis of coronary artery bypass graft(s) without angina pectoris; I10 Essential (primary) hypertension; E11.9 Type 2 diabetes mellitus without complications; D64.9 Anemia, unspecified; I45.10 Unspecified right bundle-branch block; I44.0 Atrioventricular block, first degree; Z88.7 Allergy status to serum and vaccine; Z01.818 Encounter for other preprocedural examination; Z79.82 Long term (current) use of aspirin; Z68.37 Body mass index [BMI] 37.0-37.9, adult; Z95.1 Presence of aortocoronary bypass graft; Z87.891 Personal history of nicotine dependence
CPT/HCPCS: 49652; 71046; J0131; J0690; J1100; J2001 ×2; J2250; J2405; J2704; J3490; C1781; J3010